=== PATIENT | male | born 2000 | race Caucasian/White ===

== ENCOUNTER 2022-01-03 10:31 | Emergency (ER) | payer MEDICAID, OTHER ==
[~2022-01-03] VITALS: Ht 182.9 cm; Wt 113.6 kg
[~2022-01-03 10:31] MED LIST: IBUP100T34 PO
[2022-01-03 15:21] VITALS: BP 137/85
== END 2022-01-03 15:27 | disposition home or self-care (01) ==
LOC: ER 10:33
DX: S06.0X9A Concussion with loss of consciousness of unspecified duration, initial encounter (principal); V49.3XXA Car occupant (driver) (passenger) injured in unspecified nontraffic accident, initial encounter; Y93.89 Activity, other specified; Y92.89 Other specified places as the place of occurrence of the external cause; Y99.8 Other external cause status
CPT/HCPCS: 70450; 72125; 99284